=== PATIENT | male | born 1955 | race Caucasian/White ===

== ENCOUNTER → 2020-11-29 11:06 | Outpatient (BNVA) | payer MEDICARE, SELFPAY | PROVIDERS: Family Provider Family Medicine; PCP Family Medicine; Visit Provider Registered Nurse | DX: Z20.5 Contact with and (suspected) exposure to viral hepatitis (principal); I10 Essential (primary) hypertension; E78.5 Hyperlipidemia, unspecified; Z11.59 Encounter for screening for other viral diseases | CPT/HCPCS: 86705; 86706; 86709; 86803; 87340 ==

== ENCOUNTER → 2020-11-30 09:06 | Outpatient (BNVA) | payer MEDICARE, SELFPAY | PROVIDERS: Family Provider Family Medicine; PCP Family Medicine; Visit Provider Registered Nurse | DX: Z20.5 Contact with and (suspected) exposure to viral hepatitis (principal); E78.5 Hyperlipidemia, unspecified; I10 Essential (primary) hypertension | CPT/HCPCS: 80061; 80076; 85025 ==

== ENCOUNTER → 2022-03-22 09:16 | Outpatient (BNVA) | payer MEDICARE, SELFPAY | PROVIDERS: Family Provider Family Medicine; PCP Registered Nurse; Visit Provider Registered Nurse | DX: Z12.11 Encounter for screening for malignant neoplasm of colon (principal); N52.9 Male erectile dysfunction, unspecified; M47.812 Spondylosis without myelopathy or radiculopathy, cervical region; Z12.5 Encounter for screening for malignant neoplasm of prostate; I10 Essential (primary) hypertension; E78.5 Hyperlipidemia, unspecified | CPT/HCPCS: 80053; 80061; 84153; 85025 ==

== ENCOUNTER → 2022-04-12 15:03 | Outpatient (BNVA) | payer MEDICARE, SELFPAY | PROVIDERS: Family Provider Family Medicine; PCP Registered Nurse; Visit Provider Surgery | DX: Z12.11 Encounter for screening for malignant neoplasm of colon (principal) | CPT/HCPCS: 99024 ==

== ENCOUNTER → 2022-04-28 09:31 | Outpatient (BNVA) | payer MEDICARE, SELFPAY | PROVIDERS: Family Provider Family Medicine; PCP Registered Nurse; Visit Provider Nurse Practitioner Family | DX: R63.4 Abnormal weight loss (principal); I10 Essential (primary) hypertension; Z12.5 Encounter for screening for malignant neoplasm of prostate | CPT/HCPCS: 80053; 84153; 85025; 86140; G0103 ==

== ENCOUNTER 2022-06-08 08:10 | Day surgery (SDC) | payer MEDICARE, SELFPAY ==
[2022-06-06 11:23] VITALS: BMI 24.3
[2022-06-08 08:41] VITALS: BP 139/85; PULSE 86; RESP 18; TEMP 36.4; O2SAT 98
[2022-06-08] MEDS: sodium chloride 0.9% 1,000 ML 30 ML IV (08:49)
--- NOTE | 2022-06-08 10:01 | P.HP_ITS ---
Same Day Surgery H&P Indication for Procedure/HPI DATE OF PROCEDURE: June 08, 2022 CHIEF COMPLAINT/INDICATIONFOR SURGICAL PROCEDURE: Screening colonoscopy PREOP DIAGNOSIS: Screening colonoscopy PLANNED PROCEDURE: Operation Date: 06/08/22 09:30 Proposed Procedures p Colonoscopy 72086,Z12.11(Not Applicable) - Adama Rice MD 04/12/2022 This is a pleasant 66 years old gentleman referred to my practice to discuss screening colonoscopy.? Patient denies bleeding per rectum or history of colon cancer. Interim history 06/08/2022 Patient comes today for screening colonoscopy ROS All systems have been reviewed negative except as for the above or per problem list. Medications/Allergies* Home Medications Medication Instructions Recorded Confirmed Type famotidine 10 mg tablet 10 mg PO DAILY 02/16/20 06/06/22 History lisinopril 20 mg tablet 10 mg PO DAILY 06/06/22 06/06/22 History amitriptyline 25 mg tablet 25 mg PO DAILY 06/07/22 06/07/22 History clonidine HCl 0.2 mg tablet 0.2 mg PO BID PRN Hypertensive 06/07/22 06/08/22 History Emergency cyclobenzaprine 10 mg tablet 10 mg PO DAILY 06/07/22 06/07/22 History pravastatin 80 mg tablet 80 mg PO DAILY 06/07/22 06/07/22 History Allergies/Adverse Reactions Allergy/AdvReac Type Severity Reaction Status Date / Time No Known Allergies Allergy Verified 06/08/22 10:10 Current Medications: Generic Name Dose Route Start Last Admin Trade Name Freq PRN Reason Stop Dose Admin Sodium Chloride 1,000 mls @ 30 mls/hr 06/08/22 08:30 06/08/22 08:49 Sodium Chloride 0.9% IV 06/09/22 08:29 30 mls/hr .Q24H RANGEL Administration Pertinent History/Comorbid Conditions* Medical History (Updated 04/27/22 @ 15:37 by YLNN Michael) Osteoarthritis cervical spine Social History Smoking and tobacco status: never smoked Alcohol intake: never Adopted: No Caregiver/support person: No Lives independently: No service: No Current occupational status: retired Sexually active: Yes Current gender identity: Male Pertinent Exam Findings alert, oriented x 3, regular rate & rhythm and procedure specific exam findings (Abdominal exam nontender nondistended soft) Recommendations Surgery/Procedure today (Screening colonoscopy) Coding Level of Care Code Acute Sap Portal Consultant for Maisha Gallegos
[2022-06-08 11:24] VITALS: BP 129/87; PULSE 93; RESP 16; TEMP 36.2; O2SAT 98
[2022-06-08 11:36] VITALS: BP 143/98; PULSE 82; RESP 18; O2SAT 98
--- NOTE | 2022-06-08 13:32 | ANES.PREANE2 ---
Pre-Anesthetic Assessment Height/Weight: Height 1.78 m Weight 77.111 kg Temp Pulse Resp BP Pulse Ox O2 Del Method O2 Flow Rate 97.2 F L 82 18 143/98 98 3 06/08/22 11:24 06/08/22 11:36 06/08/22 11:36 06/08/22 11:36 06/08/22 11:36 06/08/22 11:36 06/08/22 11:24 Preop Diagnosis: Screening colonoscopy Operation Date: 06/08/22 09:30 Proposed Procedures p Colonoscopy 43792,Z12.11(Not Applicable) - Adama Rice MD Familial anesthetic complications: none Was Beta Leonora taken within 24 hours: N/A Was Clonidine taken within 24 hours: Yes Last intake: Intake Last Liquid Date 06/07/22 Last Liquid Time 21:00 Last Solid Date 06/06/22 Last Solid Time 09:00 Social No alcohol and No tobacco Exam alert, oriented x 3, clear to auscultation bilaterally and regular rate & rhythm Airway Submandibular: within normal limits Cervical ROM: within normal limits Mallampati: Class II CV/HEM Hypertension Metabolic Hyperlipidemia [facility] Osteoarthritis/DJD Anesthetic Plan ASA status: 2 Anesthesia: MAC Medications/Allergies Home Medications Medication Instructions Recorded Confirmed Last Taken Type famotidine 10 mg tablet 10 mg PO DAILY 02/16/20 06/06/22 06/07/22 History sildenafil 50 mg tablet (Viagra) 50 mg PO DAILY #14 tabs 03/22/22 06/06/22 06/07/22 Rx tramadol 50 mg tablet 50 mg PO BID PRN pain #40 tabs 03/22/22 06/06/22 06/07/22 Rx peg 3350-electrolytes 236 240 ml PO Q10M #4,000 mL 04/13/22 06/06/22 06/07/22 Rx gram-22.74 gram-6.74 gram-5.86 gram solution (Golytely) lisinopril 20 mg tablet 10 mg PO DAILY 06/06/22 06/06/22 06/07/22 History amitriptyline 25 mg tablet 25 mg PO DAILY 06/07/22 06/07/22 06/07/22 History clonidine HCl 0.2 mg tablet 0.2 mg PO BID PRN Hypertensive 06/07/22 06/08/22 1 Week Ago History Emergency ~06/01/22 cyclobenzaprine 10 mg tablet 10 mg PO DAILY 06/07/22 06/07/22 06/07/22 History pravastatin 80 mg tablet 80 mg PO DAILY 06/07/22 06/07/22 06/07/22 History Allergies Allergy/AdvReac Type Severity Reaction Status Date / Time No Known Allergies Allergy Verified 06/08/22 10:10 [facility] Anesthesia Medical History Osteoarthritis cervical spine Social History Smoking and tobacco status: never smoked Alcohol intake: never Adopted: No Caregiver/support person: No Lives independently: No service: No Current occupational status: retired Sexually active: Yes Current gender identity: Male Data Anesthesia Cardiac Studies: No Data to Display
--- NOTE | 2022-06-08 13:33 | ANE.PACU2 ---
Inpatient post-anesthesia follow up: Airway intact: Yes Vital signs: Temperature 97.2 F Pulse Rate 82 Respiratory Rate 18 Blood Pressure 143/98 Pulse Oximetry 98 Oxygen Delivery Me thod Room Air Oxygen Flow Rate 3 Fraction of Inspir ed Oxygen Hydration adequate: Yes Nausea and vomiting: No Pain level: 1 Mental status: Baseline
== END 2022-06-08 11:48 | disposition home or self-care (01) ==
PROVIDERS: PCP Nurse Practitioner Family; Visit Provider Surgery
PROC: 0DJD8ZZ Inspection of Lower Intestinal Tract, Via Natural or Artificial Opening Endoscopic (ICD-10-PCS; CPT 45378; principal; 2022-06-08 09:30)
DX: Z12.11 Encounter for screening for malignant neoplasm of colon (principal); I10 Essential (primary) hypertension; E78.5 Hyperlipidemia, unspecified; M19.90 Unspecified osteoarthritis, unspecified site
CPT/HCPCS: G0121; J2704; J7030

== ENCOUNTER → 2022-06-15 16:43 | Outpatient (BNVA) | payer MEDICARE, SELFPAY | PROVIDERS: PCP Nurse Practitioner Family; Visit Provider Surgery | DX: Q43.8 Other specified congenital malformations of intestine (principal); N40.0 Benign prostatic hyperplasia without lower urinary tract symptoms | CPT/HCPCS: 99212 ==

== ENCOUNTER → 2023-05-15 11:11 | Outpatient (BNVA) | payer MEDICARE, SELFPAY | PROVIDERS: PCP Nurse Practitioner Family; Visit Provider Registered Nurse | DX: E78.5 Hyperlipidemia, unspecified (principal); I10 Essential (primary) hypertension; E55.9 Vitamin D deficiency, unspecified; Z00.00 Encounter for general adult medical examination without abnormal findings; F12.90 Cannabis use, unspecified, uncomplicated; Z71.85 Encounter for immunization safety counseling; Z71.3 Dietary counseling and surveillance; Z71.82 Exercise counseling | CPT/HCPCS: 80053; 80061; 82306; 85025 ==

== ENCOUNTER → 2024-12-08 09:55 | Outpatient (BNVA) | payer MEDICARE, SELFPAY | PROVIDERS: PCP Registered Nurse; Visit Provider Registered Nurse | DX: N40.0 Benign prostatic hyperplasia without lower urinary tract symptoms (principal); E78.5 Hyperlipidemia, unspecified; E55.9 Vitamin D deficiency, unspecified | CPT/HCPCS: 80053; 80061; 81000; 82306; 85025 ==